=== PATIENT | male | born 1990 | race Caucasian/White ===

== ENCOUNTER 2018-10-15 20:57 | Emergency (ER) | payer MEDICAID ==
[~2018-10-15] VITALS: Ht 182.9 cm; Wt 68.2 kg
[2018-10-15 21:13] VITALS: BP 136/79; TEMP 99.9
[2018-10-15] MEDS ORDERED: SEPTRA DS 8001 TAB PO (22:02)
[2018-10-15 22:22] VITALS: PULSE 94
== END 2018-10-15 22:22 | disposition home or self-care (01) ==
LOC: COL.ER 20:57
DX: L02.01 Cutaneous abscess of face (principal); F12.90 Cannabis use, unspecified, uncomplicated; F17.290 Nicotine dependence, other tobacco product, uncomplicated

== ENCOUNTER 2018-10-20 13:32 | Emergency (ER) | payer MEDICAID ==
[~2018-10-20] VITALS: Ht 182.9 cm; Wt 79.5 kg
[~2018-10-20 13:32] MED LIST: SEPTRA DS 8001 TAB PO
[2018-10-20 13:33] VITALS: TEMP 98
[2018-10-20 14:20] VITALS: BP 121/71; PULSE 72
== END 2018-10-20 14:30 | disposition home or self-care (01) ==
LOC: COL.ER 13:32
DX: F12.129 Cannabis abuse with intoxication, unspecified (principal); F17.210 Nicotine dependence, cigarettes, uncomplicated

== ENCOUNTER 2018-10-26 18:25 | Emergency (ER) | payer MEDICAID ==
[~2018-10-26] VITALS: Ht 185.4 cm; Wt 65.9 kg
[2018-10-26 18:25] VITALS: TEMP 99.9
[2018-10-26 18:52] LABS: ALANINE AMINOTRANSFERASE 36 U/L (21-72); ALBUMIN 2.6 gm/dL (3.5-5.0); ALKALINE PHOSPHATASE 214 U/L (50-136); ANION GAP 11 mmol/L (7-16); AST,SGOT 82 U/L (15-37); BILIRUBIN,TOTAL 2.2 mg/dL (0.0-1.0); BLOOD UREA NITROGEN 66 mg/dL (9-20); CALCIUM 8.3 mg/dL (8.4-10.2); CARBON DIOXIDE 20 mmol/L (22-30); CHLORIDE 103 mmol/L (98-107); CREATININE, serum 1.71 (0.66-1.25); GLUCOSE 93 mg/dL (74-106); POTASSIUM 3.7 mmol/L (3.4-5.0); SODIUM 133 mmol/L (137-145); TOTAL PROTEIN 6.2 gm/dL (6.4-8.2)
[2018-10-26 19:12] LABS: HEMOGLOBIN 11.2 g/dl (13.5-18.0); MEAN CELL VOLUME 76 fl (80.0-100.0); MEAN CORPUSCULAR HEMOGLOBIN 26 pg (27.0-31.0); MEAN CORPUSCULAR HGB CONC 33 g/dl (33.0-37.0); PLATELET COUNT 86 K/mm3 (130-400); REDCELL DISTRIBUTION WIDTH-CV 17.9 % (11.5-14.5)
[2018-10-26 19:24] LABS: C-REACTIVE PROTEIN 19.7 mg/dL (0.0-0.9); HEMATOCRIT 33.6 % (42.0-52.0); TROPONIN-I < 0.012 ng/mL (0.000-0.035)
[2018-10-26 19:30] LABS: BAND 12 % (0-10); EOSINOPHIL 2 % (0-4); LYMPHOCYTE 12 % (20.0-51.0); NEUTROPHILS 72 % (42.0-75.2); PLATELET ESTIMATE DECREASED (NORMAL)
[2018-10-26 19:32] LABS: ANISOCYTOSIS 1+; MICROCYTOSIS 1+
[2018-10-26 20:17] LABS: COLLECTION METHOD CLEAN CATCH
[2018-10-26 20:40] LABS: TRICYCLIC ANTIDEPRESS URINE NEGATIVE
[2018-10-26 20:43] LABS: MUCOUS Present /lpf; PH 5 (5-8); SQUAMOUS EPITHELIAL None Seen /hpf; URINE APPEARANCE Hazy; URINE BACTERIA None Seen /hpf; URINE BILIRUBIN Negative (NEGATIVE); URINE BLOOD 3+ (NEGATIVE); URINE COLOR Amber; URINE GLUCOSE Negative (NEGATIVE); URINE KETONE Negative (NEGATIVE); URINE LEUKOCYTE ESTERASE Negative (NEGATIVE); URINE NITRATE Negative (NEGATIVE); URINE PROTEIN(semi-quant) Negative (NEGATIVE); URINE RBC >50 /hpf; URINE UROBILINOGEN >=4.0 mg/dL (NEGATIVE)
[2018-10-26 21:30] VITALS: BP 118/71; PULSE 89
== END 2018-10-26 21:30 | disposition short-term general hospital (02) ==
LOC: COL.ER 18:25
PROVIDERS: Emergency Medicine
DX: N17.9 Acute kidney failure, unspecified (principal); J18.1 Lobar pneumonia, unspecified organism; F12.90 Cannabis use, unspecified, uncomplicated
CPT/HCPCS: J0692; J3370; J7030; J7050